=== PATIENT | female | born 1945 | race Caucasian/White ===

== ENCOUNTER 2019-06-06 09:53 | Inpatient (IN) | payer OTHER, MEDICARE ==
[2019-06-06] MEDS ORDERED: SODIUM CHLORIDE 0.9% 500 ML INFUS.BAG IV ONE (10:19)
[2019-06-06] MEDS ORDERED: morphine CARPU-JECT 4 MG/1 ML DISP.SYRIN IVPUSH ONE (10:19)
[2019-06-06 10:21] VITALS: BMI 15.2
--- NOTE | 2019-06-06 10:24 | PDOC ---
History of Present Illness - General Chief Complaint: Injury Stated Complaint: R/O RT HIP FX Time Seen by Provider: 06/06/19 10:00 History Source: Patient, EMS Exam Limitations: No Limitations - History of Present Illness Initial Comments: 06/06/19 10:19 HPI 73 YOF with h/o [place] disease on steroids daily, arthritis, prior jaw fracture and left hip fx presenting with mechanical trip and fall, c/o right hip pain, unable to ambulate. she was getting up from bed and her slippers got caught with the carpet, she fell and landed on right hip. no LOC or head injury. no other complaints. no prodromal sx. no ASA or AC use. PSH: hip repair Meds: fludrocortisone, cortisol Social: lives with family; no ETOH or drug or smoking PMD Dr Jimenez. Trauma ROS: Constitutional: no fevers or chills. HEENT: no headache, no dizziness. No visual or hearing changes. No dental pain. No neck pain CVS: no chest pain or palpitations, no syncope Resp: no shortness of breath Abdomen: no abdominal pain, no vomiting or nausea. Genitorurinary: no urinary retention or incontinence, no dysuria, urgency or frequency. no hematuria MUSCULOSKELETAL: +hip , +leg/joint pain Back: no back pain SKIN: no redness or skin changes, no discharge, no rash. No wounds. Hematologic: no easy bruising/bleeding. NEUROLOGIC: No weakness, numbness or tingling. Allergic/Immunologic: no allergies All other systems reviewed and negative, or as documented in HPI. Physical exam: General: GCS 15 - NAD, well appearing HEENT: NCAT, PERRL, EOMI. Airway intact. No battles sign or raccoon eyes. No e/ o ocular. Dentition intact. No e/o septal hematoma, nasal bridge stable. Neck: neck supple, no midline C spine tenderness or deformity, ROM intact. No anterior mass or crepitus, trachea midline. Resp: Lungs clear bilaterally Chest: no clavicle or chest wall tenderness or crepitus CVS: RRR, 2+ pulses throughout. Abdomen: Abdomen soft, nontender, nondistended. Back: Back nontender, no midline spinal tenderness along cervical/thoracic/ lumbar spine, FROM, no stepoffs. MSK: pelvis stable. RLE held in hip flexion, unable to straighten. +right anterior hip TTP, ROM limited 2/2 extreme pain, 5/5 plantar and dorsiflexion, wiggles toes, SILT in L1-S1 distribution. Neuro: Alert, oriented appropriately. CN II-XII grossly symmetric and intact. no focal neuro deficits. Sensation and strength intact throughout. Skin: intact, normal color and well perfused. No skin discoloration. 06/06/19 12:36 06/06/19 17:40 Past History - Past Medical History Allergies/Adverse Reactions: Allergies Allergy/AdvReac Type Severity Reaction Status Date / Time Penicillins Allergy Severe Difficulty Verified 06/06/19 10:04 Breathing meperidine HCl [From Demerol] AdvReac Intermediate Nausea Verified 06/06/19 10: 04 seasonal Allergy Intermediate Uncoded 06/06/19 10:04 Home Medications: Ambulatory Orders Cortisone Acetate [Cortisone -] 25 mg PO DAILY 06/06/19 Levothyroxine [Synthroid -] 50 mg PO DAILY 06/06/19 Meclizine HCl 25 mg PO TID 06/06/19 Anemia: No Asthma: No Cancer: No Cardiac Disorders: Yes (mvp) CVA: No COPD: No CHF: No Dementia: No Diabetes: No GI Disorders: Yes (h-pylori) Disorders: No HTN: No Hypercholesterolemia: No Liver Disease: No Seizures: No Thyroid Disease: No - Surgical History Abdominal Surgery: No Appendectomy: No Cardiac Surgery: No Cholecystectomy: No Lung Surgery: No Neurologic Surgery: No Orthopedic Surgery: Yes - Psycho Social/Smoking Cessation Hx Smoking History: Unknown if ever smoked Have you smoked in the past 12 months: No Hx Alcohol Use: No Drug/Substance Use Hx: No Substance Use Type: None Hx Substance Use Treatment: No *Physical Exam - Vital Signs Last Vital Signs Temp Pulse Resp BP Pulse Ox 97.2 F L 52 L 18 145/67 98 06/06/19 10:04 06/06/19 10:04 06/06/19 10:04 06/06/19 10:04 06/06/19 10:04 Procedures - Additional Procedures Additional Procedures: other Progress: 06/06/19 14:27 NERVE BLOCK Procedure A right femoral nerve block was performed. Patient was identified, using 2 criteria After explanation of the risks benefits and alternatives verbal [written] consent was obtained. Pre-procedure neurological exam findings: A neurologic exam was conducted including motor and sensory testing of the femoral/lateral cutaneous/obturator nerve. There were no deficits. Extremity compartments were soft Procedural details: The patient was maintained on continuous cardiac and pulmonary monitoring throughout the procedure. ``Time out was performed before needle insertion. The area of injection was prepped with chlorhexidine. Sterile technique was observed using: [+] sterile gloves, [+] sterile ultrasound probe cover, [+] sterile drape A 22 gauge quincke tip 90 mm in length, was used. Ultrasound guidance with real-time visualization of the needle tip was utilized throughout the procedure using an in-plane approach. Images were saved in PACS. Approximately 7 mL of 2 % (140mg) lidocaine without epinephrine and 18 ml 0.5% ( 90mg) bupivicaine ( was injected near the nerve structure - right femoral nerve. Local anesthetic was gradually injected in small aliquots of 3-5 mL following negative aspiration. There was no significant pain or paresthesias during the procedure. There were no signs of local anesthetic toxicity. There were no other complications or events on director of resource development Following the procedure, the blocked extremity was protected and [positioned] to prevent injury and was marked with provider initials and time of the block. Risks and complications of nerve block discussed including but not limited to failure of block, infection, bleeding, hematoma, pain, swelling, disability, compartment syndrome, vascular compromise, loss of limb, paralysis, paresthesias , anesthetic toxicity such as arrhythmia, metallic taste, seizures. 06/06/19 16:33 Heart Score/ECG Review #1 ECG reviewed & interpreted by me at: 10:10 General ECG Interpretation: Sinus Rhythm, Normal Intervals, No acute ischemic changes 06/06/19 10:28 EKG sinus bradycardia at 54 bpm, no interval abnormalities, narrow QRS, ST and T wave segments and morphology normal. Nonspecific T wave abnormalities, some limitations with artifact. ED Treatment Course - LABORATORY CBC & Chemistry Diagram: 06/06/19 10:21 06/06/19 10:21 - RADIOLOGY Radiology Studies Ordered: Category Date Time Status FEMUR-RIGHT [RAD] Stat Radiology 06/06/19 10:19 Ordered HIP & PELVIS-RIGHT [RAD] Stat Radiology 06/06/19 10:18 Ordered KNEE 3 POS-RIGHT [RAD] Stat Radiology 06/06/19 10:18 Ordered Medical Decision Making - Medical Decision Making 06/06/19 10:23 Vital Signs Temp Pulse Resp BP Pulse Ox 97.2 F L 52 L 18 145/67 98 06/06/19 10:04 06/06/19 10:04 06/06/19 10:04 06/06/19 10:04 06/06/19 10:04 Differential diagnosis includes contusion, extremity fracture, hip/pelvis fracture, femur fx, hip dislocation GCS 15, no head trauma or LOC, doubt syncope w/o prodromal sx. no indication for head CT given no neuro findings, no head trauma. Plan for x-ray imaging, basic labs, type and screen EKG, patient most likely has a hip fracture clinically given the extreme pain, will provide appropriate analgesia IV fluids and reassess Basic laboratory results are within normal limits, EKG is sinus bradycardia without abnormalities. Patient has been given IV morphine and Tylenol for pain control, patient did have brief episode of hypoxia placed on supplemental oxygen likely due to morphine side effects. Will not give any more opioids at this time. Patient is unable to tolerate x-ray imaging as she is unable to keep her leg straight so we will do CT of her pelvis and right lower extremity to evaluate for fracture, hematoma and associated injuries due to the mechanism of her fall 06/06/19 13:16 = rt hip/IT fracture noted, [facility]o cs with Dr Fernández/Dariusz FNB for analgesia, regional anesthesia, given risk of opioids and delirium/resp depression see procedure note quinn catheter, UA and culture preop assessment took her steroid today, to prevent adrenal crisis. admit to medicine, ortho eval, operative management tomorrow, NPO after midnight admitting to Dr Mcbride, Doris Fernández/Dariusz for surg tmw. 06/06/19 16:37 06/06/19 17:40 Discharge - Discharge Information Problems reviewed: Yes Clinical Impression/Diagnosis: Intertrochanteric fracture of right hip Condition: Fair - Admission Yes - Follow up/Referral - Patient Discharge Instructions - Post Discharge Activity
[2019-06-06] MEDS ORDERED: morphine SULFATE 4 MG/ML VIAL ONE (10:26)
[2019-06-06 10:57] LABS: BASO % 0.5 % (0-2.0); EOS % 1.6 % (0-4.5); HEMATOCRIT 36.9 % (32.4-45.2); HEMOGLOBIN 12.2 GM/dL (10.7-15.3); LYMPH % 18.8 % (8-40); MCH 31.9 pg (25.7-33.7); MCHC 33.2 g/dl (32.0-36.0); MEAN CELL VOLUME 96.1 fl (80-96); MEAN PLT VOLUME 8.2 fl (7.5-11.1); MONO % 7.3 % (3.8-10.2); NEUT % 71.8 % (42.8-82.8); PLATELET COUNT 171 K/MM3 (134-434); RBC 3.84 M/mm3 (3.60-5.2); RDW 12.8 % (11.6-15.6); WHITE BLOOD COUNT 8.8 K/mm3 (4.0-10.0)
[2019-06-06] MEDS ORDERED: ONDANSETRON 4 MG/2 ML VIAL ONE (11:03)
[2019-06-06] MEDS ORDERED: ONDANSETRON 4 MG/2 ML VIAL IVPUSH ONE (11:08)
[2019-06-06] MEDS ORDERED: ACETAMINOPHEN 1000 MG/100 ML VIAL (NON FORMULARY) IVPB ONE (11:15)
[2019-06-06] MEDS ORDERED: ACETAMINOPHEN INJECTION 100 ML IVPB ONE (11:17)
[2019-06-06 11:24] LABS: ALBUMIN 3.2 g/dl (3.4-5.0); BILIRUBIN,TOTAL 0.8 mg/dL (0.2-1); BLOOD UREA NITROGEN 14.9 mg/dL (7-18); CALCIUM 8.4 mg/dL (8.5-10.1); CREATININE 0.6 mg/dL (0.55-1.3); POTASSIUM 3.2 mmol/L (3.5-5.1)
[2019-06-06] MEDS ORDERED: POTASSIUM CHLORIDE TABS 20 MEQ TABLET.ER (FP) PO ONE (11:41)
[2019-06-06] MEDS ORDERED: BUPIVACAINE HCL/PF 0.5% (5 MG/ML) 30 ML VIAL IJ ONE ×2 (13:55→13:58)
[2019-06-06] MEDS ORDERED: LIDOCAINE HCL 2% (20ML MULTI-DOSE VIAL) ONE (14:00)
[2019-06-06] MEDS ORDERED: METOCLOPRAMIDE HCL INJECTION 10 MG/2 ML VIAL IVPUSH ONE (14:35)
[2019-06-06] MEDS ORDERED: ACETAMINOPHEN 1000 MG/100 ML VIAL (NON FORMULARY) IVPB PRN (15:18)
--- NOTE | 2019-06-06 15:31 | HP ---
CHIEF COMPLAINT: PCP: Dr. Val Mercedes HISTORY OF PRESENT ILLNESS: 73 y/o/f with PMHx of [place] and hypothyroidism here s/p mechanical fall at home this morning. Patient states she was getting out of bed when her slipper got caught on the bedsheet and she fell on her right hip. She denies LOC, head injury, palpitations, dizziness prior to the fall. She has not been able to walk since she fell and has pain with movement of her leg. Patient complains of nausea as well. She takes Cortisone and Fludrocortisone at home for her Addisons disease. Patient states she breaks her cortisone tablets into 1/4s and takes 1/4 of a tablet in the morning and another 1/4 eight hours later if needed. She states she also takes only half her Fludrocortisone tablet per day. Denies chest pain, abd pain, SOB, headache. Patient complaining of Nausea during interview. ER course was notable for: (1) Right intertrocanteric fracture of the right femur with impaction of fracture fragments noted on CT (2) Ortho consulted, will take patient to OR tomorrow (3) Right femoral nerve block done by ED for pain control (4) Patient was given 4mg of Morphine in ED for pain control which caused her to desaturate to the high 80s, saturation improved spontaneously without intervention Recent Travel: none PAST MEDICAL HISTORY: Addisons, Hypothyroidism PAST SURGICAL HISTORY: Left hip Social History: Smoking: denies Alcohol: denies Drugs: denies Allergies Penicillins Allergy (Severe, Verified 06/06/19 10:04) Difficulty Breathing throat closure meperidine HCl [From Demerol] Adverse Reaction (Intermediate, Verified 06/06/19 10:04) Nausea seasonal Allergy (Intermediate, Uncoded 06/06/19 10:04) HOME MEDICATIONS: Home Medications Medication Instructions Recorded Cortisone Acetate [Cortisone -] 25 mg PO DAILY 06/06/19 Levothyroxine [Synthroid -] 50 mg PO DAILY 06/06/19 Meclizine HCl 25 mg PO TID 06/06/19 REVIEW OF SYSTEMS As per HPI PHYSICAL EXAMINATION Vital Signs - 24 hr 06/06/19 06/06/19 06/06/19 10:04 11:25 11:27 Temperature 97.2 F L Pulse Rate 52 L Pulse Rate [ 56 L Right] Respiratory 18 16 Rate Blood Pressure 145/67 Blood Pressure 154/68 [Left Arm] O2 Sat by Pulse 98 84 L 99 Oximetry (%) GENERAL: Awake, alert, and fully oriented, in pain. thin HEAD: Normal with no signs of trauma. EYES: PERRL, EOMI EARS, NOSE, THROAT: Dry mucous membranes NECK: Normal range of motion, supple without lymphadenopathy, JVD, or masses. LUNGS: Breath sounds equal, clear to auscultation bilaterally. No wheezes, and no crackles. No accessory muscle use. HEART: Regular rate and rhythm, normal S1 and S2 without murmur, rub or gallop. ABDOMEN: Soft, nontender, not distended, normoactive bowel sounds MUSCULOSKELETAL: RLE held in flexed position, pain with minimal movement. No gross deformities noted EXTREMITIES: 2+ pulses, warm, well-perfused. No peripheral edema. NEUROLOGICAL: Cranial nerves II-XII intact. Normal speech PSYCHIATRIC: Cooperative. Good eye contact. Appropriate mood and affect. SKIN: Warm, dry, normal turgor, no rashes or lesions noted, normal capillary refill. Laboratory Results - last 24 hr 06/06/19 06/06/19 06/06/19 10:21 10:21 10:21 WBC 8.8 RBC 3.84 Hgb 12.2 Hct 36.9 MCV 96.1 H MCH 31.9 MCHC 33.2 RDW 12.8 Plt Count 171 MPV 8.2 Absolute Neuts (auto) 6.3 Neutrophils % 71.8 Lymphocytes % 18.8 D Monocytes % 7.3 Eosinophils % 1.6 Basophils % 0.5 Nucleated RBC % 0 Sodium 142 Potassium 3.2 L Chloride 110 H Carbon Dioxide 28 Anion Gap 5 L BUN 14.9 Creatinine 0.6 Est GFR (CKD-EPI)AfAm 103.34 Est GFR (CKD-EPI)NonAf 89.16 Random Glucose 86 Calcium 8.4 L Total Bilirubin 0.8 AST 27 ALT 24 Alkaline Phosphatase 48 Total Protein 6.0 L Albumin 3.2 L Blood Type A POSITIVE Antibody Screen Negative ASSESSMENT/PLAN: 73 y/o/f with PMHx of [place] and hypothyroidism here s/p mechanical fall at home this morning. Found to have R femur intertrocanteric fracture on imaging. Ortho consulted, to go to OR tomorrow. #R femur intertrocanteric fracture 2/2 mechanical fall - CT imaging confirmed right femur intertrocanteric fracture - Ortho consulted, will take patient to OR tomorrow for gamma nail procedure - Pre-Op labs ordered - NPO after midnight except for meds - Ofirmev for pain control - Patient given 4mg of Morphine in ED which caused her to desaturate to 80s. Can give Morphine for pain control if needed but would start with low dose and monitor O2 sat - Fall precautions #Addisons disease - Continue home dose of Cortisone - Continue home dose of Fludrocortisone. Patient has not picked up fludrocortisone since Jun of this year but swears she is taking it as described in HPI - Endocrine consulted - will need high dose steroids prior to surgery #Hypothyroidism - Continue Levothyroxine. Will switch to IV until s/p surgery when she can resume PO #Prophylaxis - Will hold chemical AC in anticipation of procedure #FEN - Regular diet - NPO at midnight except for meds - D5LR @75mls/hr #Disposition - admitted to med surg - to go to OR tomorrow for gamma nail procedure Visit type - Emergency Visit Emergency Visit: Yes ED Registration Date: 06/06/19 Care time: The patient presented to the Emergency Department on the above date and was hospitalized for further evaluation of their emergent condition. - New Patient This patient is new to me today: No - Critical Care Critical Care patient: No ATTENDING PHYSICIAN STATEMENT I saw and evaluated the patient. I reviewed the resident's note and discussed the case with the resident. I agree with the resident's findings and plan as documented. SUBJECTIVE: OBJECTIVE: ASSESSMENT AND PLAN:
--- NOTE | 2019-06-06 15:39 | PN ---
Teaching Attending Note Name of Resident: Angeles Tuttle ATTENDING PHYSICIAN STATEMENT I saw and evaluated the patient. I reviewed the resident's note and discussed the case with the resident. I agree with the resident's findings and plan as documented with exceptions below. SUBJECTIVE: 73 yof with PMhx of [place]'s disease on Cortisone/Fludrocortisone for 35 years , prior falls, left femoral neck fracture s/p open reduction/internal fixation 2011, admitted with mechanical fall, right hip pain, found with right intertrochanteric fracture. Patient confirms mechanical fall while trying to get out of bed. No dizziness, LOC, head trauma, chest pain, palpitations, dyspnea, or other symptoms around the episode. Currently s/p femoral block by ED, pain better. Orthopedic consulted, plan for OR tomorrow. OBJECTIVE: Vital Signs Period Temp Pulse Resp BP Sys/Henderson Pulse Ox Last 24 Hr 97.2 F 52-56 16-18 145-154/67-68 84-99 Intake & Output 06/03/19 06/04/19 06/05/19 06/06/19 23:59 23:59 23:59 23:59 Weight 97 lb GENERAL: Awake, alert, and fully oriented, in no acute distress,sleepy but appropriate/conversant. HEAD: Normal with no signs of trauma. EYES: Pupils equal, round and reactive to light, extraocular movements intact, sclera anicteric, conjunctiva clear. No lid lag. EARS, NOSE, THROAT: Ears normal, nares patent, oropharynx clear without exudates. Moist mucous membranes. NECK: Normal range of motion, soft, supple, no JVD LUNGS: decreased effort, no rales or wheezing, limited exam posteriorly HEART: Regular rate and rhythm, normal S1 and S2, no murmur or rub appreciated ABDOMEN: Soft, nontender, not distended, normoactive bowel sounds, no guarding, no rebound, no masses. No hepatomegaly or splenomegaly appreciated. MUSCULOSKELETAL: Normal range of motion at all joints. No bony deformities or tenderness. No CVA tenderness. UPPER EXTREMITIES: 2+ pulses, warm, well-perfused. No cyanosis. No clubbing. No peripheral edema. LOWER EXTREMITIES: RLE shortened, limited ROM, pos DP pulses, no pedal edema, LLE pos pulses, no edema NEUROLOGICAL: AAOx3, facial symmetry, speech normal, power 4/5 generalized except RLE limited by pain, no gross focal deficit PSYCHIATRIC: Cooperative. Good eye contact. Appropriate mood and affect. SKIN: Warm, dry, normal turgor, no rashes or lesions noted, normal capillary refill. Home Medications Medication Instructions Recorded Cortisone Acetate [Cortisone -] 25 mg PO DAILY 06/06/19 Levothyroxine [Synthroid -] 50 mg PO DAILY 06/06/19 Meclizine HCl 25 mg PO TID 06/06/19 Active Medications Acetaminophen (Ofirmev Injection -) 1,000 mg IVPB Q6H PRN PRN Reason: PAIN LEVEL 1-5 Dextrose/Lactated Ringer's (D5-Lr -) 1,000 mls @ 75 mls/hr IV [facility] Laboratory Results - last 24 hr 06/06/19 06/06/19 06/06/19 10:21 10:21 10:21 WBC 8.8 RBC 3.84 Hgb 12.2 Hct 36.9 MCV 96.1 H MCH 31.9 MCHC 33.2 RDW 12.8 Plt Count 171 MPV 8.2 Absolute Neuts (auto) 6.3 Neutrophils % 71.8 Lymphocytes % 18.8 D Monocytes % 7.3 Eosinophils % 1.6 Basophils % 0.5 Nucleated RBC % 0 Sodium 142 Potassium 3.2 L Chloride 110 H Carbon Dioxide 28 Anion Gap 5 L BUN 14.9 Creatinine 0.6 Est GFR (CKD-EPI)AfAm 103.34 Est GFR (CKD-EPI)NonAf 89.16 Random Glucose 86 Calcium 8.4 L Total Bilirubin 0.8 AST 27 ALT 24 Alkaline Phosphatase 48 Total Protein 6.0 L Albumin 3.2 L Blood Type A POSITIVE Antibody Screen Negative Laboratory Results - last 24 hr 06/06/19 06/06/19 06/06/19 10:21 10:21 10:21 WBC 8.8 RBC 3.84 Hgb 12.2 Hct 36.9 MCV 96.1 H MCH 31.9 MCHC 33.2 RDW 12.8 Plt Count 171 MPV 8.2 Absolute Neuts (auto) 6.3 Neutrophils % 71.8 Lymphocytes % 18.8 D Monocytes % 7.3 Eosinophils % 1.6 Basophils % 0.5 Nucleated RBC % 0 Sodium 142 Potassium 3.2 L Chloride 110 H Carbon Dioxide 28 Anion Gap 5 L BUN 14.9 Creatinine 0.6 Est GFR (CKD-EPI)AfAm 103.34 Est GFR (CKD-EPI)NonAf 89.16 Random Glucose 86 Calcium 8.4 L Total Bilirubin 0.8 AST 27 ALT 24 Alkaline Phosphatase 48 Total Protein 6.0 L Albumin 3.2 L Blood Type A POSITIVE Antibody Screen Negative CT pelvis results reviewed EKG sinus bradycardia 54, artifactual baseline but no acute ST-T changes noted ASSESSMENT AND PLAN: 73 yof with PMhx of [place]'s disease on Cortisone/Fludrocortisone for 35 years , prior falls, left femoral neck fracture s/p open reduction/internal fixation 2011 admitted with mechanical fall and right intertrochanteric hip fracture -Mechanical Fall -Right intertrochanteric hip fracture -[place]inche[place]'s disease -H/o falls -h/o left femoral neck fracture s/p ORIF 2011 Plan: Orthopedic consulted, plan for operative intervention in AM. s/p femoral nerve block in ED. Pain control with Tylenol IV. Caution with opioids given episode of drowsiness/ Vomiting/hypoxia in ED after receiving Morphine. Cortisone morning home dose. Additional stress dose with hydrocortisone 50-100 mg Pre-operatively and IV q8h for 24-48 hours. Endocrine input. Continue fludrocortisone/Levothyroxine. NPO after midnight, IV hydration RCRI 0, 0.4-0.5% risk of deborah-operative cardiac , non fatal [place] or non fatal cardiac arrest. No cardiac contraindications for urgent level of surgery, intermediate risk for intermediate level of surgery. DVTPPX post op per orthopedic recommendations Dispo anticipate SNF post surgery in 2-3 days if post-operative course uneventful. Plan discussed with patient and family at [facility] in detail, all questions answered. Total admit time 65 min.
--- NOTE | 2019-06-06 15:56 | CONSULT ---
Consult - text type - Consultation Consultation Note: FULL CONSULT DICTATED IMP:R IT HIP FX PLAN: R GAMMA NAIL TOMORROW
[2019-06-06] MEDS ORDERED: METOCLOPRAMIDE HCL INJECTION 10 MG/2 ML VIAL ONE (16:18)
[2019-06-06 17:05] LABS: PH,URINE 6.5 (5.0-8.0); URINE APPEARANCE CLEAR; URINE BILIRUBIN NEGATIVE (NEGATIVE); URINE COLOR YELLOW; URINE GLUCOSE (UA) NEGATIVE (NEGATIVE); URINE KETONE TRACE (NEGATIVE); URINE LEUK ESTERASE NEGATIVE (NEGATIVE); URINE NITRITE NEGATIVE (NEGATIVE); URINE PROTEIN NEGATIVE (NEGATIVE); URINE UROBILINOGEN 0.2 mg/dL (0.2-1.0)
--- NOTE | 2019-06-06 18:00 | CONSULT ---
Consult Consult Specialty:: Endocrinology Referred by:: Marry Reynoso Reason for Consultation:: Adrenal Insufficiency - History of Present Illness Chief Complaint: Rt hip pain History of Present Illness: This is a 73 y/o/f with PMHx of [place]'s disease and hypothyroidism who presented s/p mechanical fall at home this morning. Patient states she was getting out of bed when her slipper got caught on the bedsheet and she fell on her right hip. She denies LOC, head injury, palpitations, dizziness prior to the fall. She has not been able to walk since she fell and has pain with movement of her leg. Patient complains of nausea as well. She takes Cortisone and Fludrocortisone at home for her Addisons disease. Patient states she breaks her cortisone tablets into 1/4s and takes 1/4 of a tablet in the morning and another 1/4 eight hours later if needed. She states she also takes only half her Fludrocortisone tablet per day. Denies chest pain, abd pain, SOB, headache. Pt found to have Rt intertrocanteric fracture of the right femur with impaction of fracture fragments noted on CT. Pt seen by Ortho and is schduled for OR tomorrow. - History Source History Provided By: Patient, Medical Record - Past Medical History Endocrine: Yes: [place]'s Disease - Alcohol/Substance Use Hx Alcohol Use: No - Smoking History Smoking history: Unknown if ever smoked Have you smoked in the past 12 months: No Home Medications - Allergies Allergies/Adverse Reactions: Allergies Allergy/AdvReac Type Severity Reaction Status Date / Time Penicillins Allergy Severe Difficulty Verified 06/06/19 10:04 Breathing meperidine HCl [From Demerol] AdvReac Intermediate Nausea Verified 06/06/19 10: 04 seasonal Allergy Intermediate Uncoded 06/06/19 10:04 - Home Medications Home Medications: Ambulatory Orders Cortisone Acetate [Cortisone -] 25 mg PO DAILY 06/06/19 Levothyroxine [Synthroid -] 50 mg PO DAILY 06/06/19 Meclizine HCl 25 mg PO TID 06/06/19 Review of Systems - Review of Systems Constitutional: reports: Malaise Eyes: reports: No Symptoms HENT: reports: No Symptoms Neck: reports: No Symptoms Cardiovascular: reports: No Symptoms Respiratory: reports: No Symptoms Gastrointestinal: reports: No Symptoms Musculoskeletal: reports: Extremity Pain (Rt hip pain) Neurological: reports: No Symptoms Endocrine: reports: No Symptoms Physical Exam Vital Signs: Vital Signs Temperature 98.0 F 06/06/19 16:54 Pulse Rate 66 06/06/19 16:54 Respiratory Rate 18 06/06/19 16:54 Blood Pressure 118/50 L 06/06/19 16:54 O2 Sat by Pulse Oximetry (%) 96 06/06/19 16:54 Constitutional: Yes: No Distress, Calm Eyes: Yes: Conjunctiva Clear, EOM Intact HENT: Yes: Atraumatic, Normocephalic Neck: Yes: Supple, Trachea Midline Cardiovascular: Yes: Regular Rate and Rhythm Respiratory: Yes: Regular, CTA Bilaterally Gastrointestinal: Yes: Normal Bowel Sounds, Soft Edema: No Labs: CBC, BMP 06/06/19 10:21 06/06/19 10:21 Assessment/Plan AP: Fracture Rt Hip For OR tomorrow Adrenal Insufficiency Pt seems to be on very low dose hydrocortisone replacement of 7.5 to 15 mg per day. Will give cortisone 20mg in the morning tomorrow and Hydrocortisone 50mg IV just before surgery and 25mg IV Q8 hr postoperatively for 24 to 48 hrs Fludrocortisone 0.05mg Qd Hypothyroidiism Levothyroxine 50mcg Qd
[2019-06-06] MEDS: ACETAMINOPHEN 1000 MG/100 ML VIAL (NON FORMULARY) IVPB PRN (18:52)
[2019-06-06] MEDS: MECLIZINE HCL 25 MG TABLET (FP) PO SCH ×2 (21:58→21:59)
[2019-06-06] MEDS ORDERED: DEXTROSE 5%-LACTATED RINGERS 1,000 ML IV SCH (22:00)
[2019-06-07] MEDS ORDERED: FLUDROCORTISONE ACETATE 0.1 MG TABLET (FP) PO SCH (06:00)
[2019-06-07] MEDS: MECLIZINE HCL 25 MG TABLET (FP) PO SCH (06:08)
[2019-06-07] MEDS: ACETAMINOPHEN 1000 MG/100 ML VIAL (NON FORMULARY) IVPB PRN (06:10)
[2019-06-07] MEDS: HYDROCORTISONE 20 MG TABLET PO SCH ×2 (06:26→10:10)
[2019-06-07] MEDS ORDERED: LEVOTHYROXINE NA 50 MCG TABLET (FP) PO SCH (07:00)
[2019-06-07 08:27] LABS: HEMATOCRIT 29.4 % (32.4-45.2); HEMOGLOBIN 9.8 GM/dL (10.7-15.3); MCH 32.2 pg (25.7-33.7); MCHC 33.2 g/dl (32.0-36.0); MEAN PLT VOLUME 8.6 fl (7.5-11.1); PLATELET COUNT 119 K/MM3 (134-434); RBC 3.04 M/mm3 (3.60-5.2); RDW 12.4 % (11.6-15.6); WHITE BLOOD COUNT 6.9 K/mm3 (4.0-10.0)
[2019-06-07 08:47] LABS: INR 1.16 (0.83-1.09); PROTHROMBIN TIME (PATIENT) 13.7 SEC (9.7-13.0)
[2019-06-07 08:49] LABS: ACTIVATED PTT 33.7 SECONDS (25.2-36.5)
[2019-06-07 08:56] LABS: BLOOD UREA NITROGEN 7.7 mg/dL (7-18); CALCIUM 7.6 mg/dL (8.5-10.1); CREATININE 0.6 mg/dL (0.55-1.3)
--- NOTE | 2019-06-07 09:09 | PN ---
Progress Note (short form) - Note Progress Note: C/o Rt hip pain Reviewed home meds with at bedside Cortisone 25, Florinef 0.1mg and LT4 50 Vital Signs Period Temp Pulse Resp BP Sys/Henderson Pulse Ox Last 24 Hr 97.2 F-98.8 F 52-86 16-20 101-154/50-68 84-99 PE: AOx3 Neck: Supple HEENT: EOMI LungsL: CTA CVS: S1S2 Abd: Benign EXt: No edema CMP Sodium 138 mmol/L (136-145) 06/07/19 07:52 Potassium 3.2 mmol/L (3.5-5.1) L 06/06/19 10:21 Chloride 104 mmol/L (98-107) 06/07/19 07:52 Carbon Dioxide 29 mmol/L (21-32) 06/07/19 07:52 Anion Gap 6 MMOL/L (8-16) L 06/07/19 07:52 BUN 7.7 mg/dL (7-18) 06/07/19 07:52 Creatinine 0.6 mg/dL (0.55-1.3) 06/07/19 07:52 Est GFR (CKD-EPI)AfAm 103.34 06/07/19 07:52 Est GFR (CKD-EPI)NonAf 89.16 06/07/19 07:52 Random Glucose 220 mg/dL (74-106) H 06/07/19 07:52 Calcium 7.6 mg/dL (8.5-10.1) L 06/07/19 07:52 Total Bilirubin 0.8 mg/dL (0.2-1) 06/06/19 10:21 AST 27 U/L (15-37) 06/06/19 10:21 ALT 24 U/L (13-61) 06/06/19 10:21 Alkaline Phosphatase 48 U/L (45-117) 06/06/19 10:21 Total Protein 6.0 g/dl (6.4-8.2) L 06/06/19 10:21 Albumin 3.2 g/dl (3.4-5.0) L 06/06/19 10:21 Current Medications Generic Name Dose Route Start Last Admin Trade Name Freq PRN Reason Stop Dose Admin Acetaminophen 1,000 mg 06/06/19 18:20 06/07/19 06:10 Ofirmev Injection - IVPB 1,000 mg Q6H PRN Administration PAIN Fludrocortisone Acetate 0.05 mg 06/07/19 06:00 06/07/19 06:10 Florinef - PO 0.05 mg DAILY@0600 MARIA Administration Hydrocortisone 20 mg 06/07/19 06:00 06/07/19 06:26 Cortef - PO 20 mg DAILY MARIA Administration Hydrocortisone Sodium Succinate 50 mg 06/07/19 10:00 Solu-Cortef - IVPB 06/07/19 10:01 ONCE ONE Hydrocortisone Sodium Succinate 25 mg 06/07/19 18:00 Solu-Cortef - IVPB Q8H MARIA Dextrose/Lactated Ringer's 1,000 mls @ 75 mls/hr 06/06/19 22:00 06/06/19 21: 59 D5-Lr - IV 75 mls/hr ASDIR MARIA Administration Levothyroxine Sodium 50 mcg 06/07/19 07:00 06/07/19 06:08 Synthroid - PO 50 mcg DAILY@0700 MARIA Administration Meclizine HCl 25 mg 06/06/19 22:00 06/07/19 06:08 Antivert - PO Not Given TID MARIA AP: Fracture Rt Hip For OR tomorrow Adrenal Insufficiency Pt seems to be on very low dose hydrocortisone replacement of 7.5 to 15 mg per day. Will give cortisone 20mg in the morning tomorrow and Hydrocortisone 50mg IV just before surgery and 25mg IV Q8 hr postoperatively for 24 to 48 hrs Fludrocortisone 0.05mg Qd Electrolyte replacement as necessary Will hold Florinef tomorrow b/o hypokalemia Hypothyroidiism Levothyroxine 50mcg Qd
[2019-06-07 09:16] LABS: POTASSIUM 2.9 mmol/L (3.5-5.1)
[2019-06-07] MEDS ORDERED: POTASSIUM CHLORIDE TABS 20 MEQ TABLET.ER (FP) PO ONE (09:37)
[2019-06-07] MEDS ORDERED: PT OWN MED DRAWER 7, Y5N ONE (09:49)
[2019-06-07] MEDS ORDERED: HYDROCORTISONE SOD SUCCINATE 100 MG/2 ML VIAL IVPB ONE (10:00)
[2019-06-07] MEDS: KCL 10 MEQ IVPB 10 MEQ/100 ML INFUS.BAG IVPB SCH ×3 (10:08→15:03)
--- NOTE | 2019-06-07 10:16 | EKG ---
Test Reason : Blood Pressure : / mmHG Vent. Rate : 054 BPM Atrial Rate : 054 BPM P-R Int : 150 ms QRS Dur : 076 ms QT Int : 488 ms P-R-T Axes : 057 056 031 degrees QTc Int : 462 ms POOR DATA QUALITY, INTERPRETATION MAY BE ADVERSELY AFFECTED SINUS BRADYCARDIA POSSIBLE LEFT ATRIAL ENLARGEMENT BORDERLINE ECG WHEN COMPARED WITH ECG OF 19-AUG-2010 20:35, NO SIGNIFICANT CHANGE WAS FOUND Confirmed by Daniel Macias MD ([id number]) on 06/07/2019 10:16:30 AM Referred By: Confirmed By:Daniel Macias MD
[2019-06-07] MEDS ORDERED: ONDANSETRON 4 MG/2 ML VIAL IVPUSH PRN ×4 (11:12→13:21)
[2019-06-07] MEDS ORDERED: ceFAZolin SODIUM 1 GM VIAL IVPB ONE (12:13)
[2019-06-07] MEDS ORDERED: LACTATED RINGERS SOLUTION 1,000 ML IV SCH ×3 (12:15→13:21)
[2019-06-07] MEDS ORDERED: PROPOFOL 20 ML ONE ×3 (12:18→12:56)
[2019-06-07] MEDS ORDERED: MIDAZOLAM HCL 2 MG/2 ML SINGLE DOSE VIAL ONE (12:18)
[2019-06-07] MEDS ORDERED: EPHEDRINE SULFATE/0.9% NACL/PF 50 MG/10 ML SYRINGE NR ONE (12:40)
--- NOTE | 2019-06-07 13:13 | OP ---
Operative Note - Note: Operative Date: 06/07/19 Pre-Operative Diagnosis: R IT HIP FX Operation: R GAMMA NAIL Post-Operative Diagnosis: Same as Pre-op Anesthesia: Spinal Estimated Blood Loss (mls): 50 Operative Report Dictated: Yes
[2019-06-07] MEDS ORDERED: MECLIZINE HCL 25 MG TABLET (FP) PO SCH (14:00)
[2019-06-07] MEDS: LACTATED RINGERS SOLUTION 1,000 ML IV SCH (15:03)
--- NOTE | 2019-06-07 17:49 | PN ---
Teaching Attending Note Name of Resident: Angeles Tuttle ATTENDING PHYSICIAN STATEMENT I saw and evaluated the patient. I reviewed the resident's note and discussed the case with the resident. I agree with the resident's findings and plan as documented with exceptions below. SUBJECTIVE: Patient seen and examined around 10:30 AM before surgery. reports nausea, awaiting surgery. Pain well controlled OBJECTIVE: Vital Signs Period Temp Pulse Resp BP Sys/Henderson Pulse Ox Last 24 Hr 97.8 F-98.8 F 62-86 16-20 90-144/57-80 95-100 Intake & Output 06/04/19 06/05/19 06/06/19 06/07/19 23:59 23:59 23:59 23:59 Intake Total 100 1700 Output Total 600 3825 Balance -500 -2125 Weight 97 lb General: sitting in bed, no acute distress Chest: no rales or wheezing, Abdomen: soft, NT Extremities: no pedal edema or erythema, Right hip flexed Home Medications Medication Instructions Recorded Cortisone Acetate [Cortisone -] 25 mg PO DAILY 06/06/19 Levothyroxine [Synthroid -] 50 mg PO DAILY 06/06/19 Meclizine HCl 25 mg PO TID 06/06/19 Active Medications Acetaminophen (Ofirmev Injection -) 1,000 mg IVPB Q6H PRN PRN Reason: PAIN Enoxaparin Sodium (Lovenox -) 40 mg SQ DAILY [facility] Fentanyl (Sublimaze Injection -) 25 mcg IVPUSH [id number] PRN PRN Reason: PAIN-PACU ORDER X 4 DOSES ONLY Fludrocortisone Acetate (Florinef -) 0.05 mg PO DAILY@0600 [facility] Hydrocortisone (Cortef -) 20 mg PO DAILY [facility] Hydrocortisone Sodium Succinate (Solu-Cortef -) 25 mg IVPB Q8H MARIA Cefazolin Sodium (Ancef 1 Gm Premixed Ivpb -) 1 gm in 50 mls @ 100 mls/hr IVPB Q8H-IV MARIA Stop: 06/08/19 02:29 Lactated Ringer's (Lactated Ringers Solution) 1,000 mls @ 75 mls/hr IV ASDIR MARIA Last Admin: 06/07/19 15:03 Dose: 75 mls/hr Levothyroxine Sodium (Synthroid -) 50 mcg PO DAILY@0700 [facility] Ondansetron HCl (Zofran Injection) 4 mg IVPUSH Q6H PRN PRN Reason: NAUSEA Ondansetron HCl (Zofran Injection) 4 mg IVPUSH Q6H PRN PRN Reason: NAUSEA AND/OR VOMITING Laboratory Results - last 24 hr 06/07/19 06/07/19 06/07/19 07:52 07:52 07:52 WBC 6.9 RBC 3.04 L Hgb 9.8 L Hct 29.4 L D MCV 97.0 H MCH 32.2 MCHC 33.2 RDW 12.4 Plt Count 119 L D MPV 8.6 PT with INR 13.70 H INR 1.16 H PTT (Actin FS) 33.7 Sodium 138 Potassium 2.9 L* Chloride 104 Carbon Dioxide 29 Anion Gap 6 L BUN 7.7 Creatinine 0.6 Est GFR (CKD-EPI)AfAm 103.34 Est GFR (CKD-EPI)NonAf 89.16 Random Glucose 220 H Calcium 7.6 L Blood Type Antibody Screen 06/07/19 07:52 WBC RBC Hgb Hct MCV MCH MCHC RDW Plt Count MPV PT with INR INR PTT (Actin FS) Sodium Potassium Chloride Carbon Dioxide Anion Gap BUN Creatinine Est GFR (CKD-EPI)AfAm Est GFR (CKD-EPI)NonAf Random Glucose Calcium Blood Type A POSITIVE Antibody Screen Negative ASSESSMENT AND PLAN: 73 yof with PMhx of [place]'s disease on Cortisone/Fludrocortisone for 35 years , prior falls, left femoral neck fracture s/p open reduction/internal fixation 2011 admitted with mechanical fall and right intertrochanteric hip fracture -Mechanical Fall -Right intertrochanteric hip fracture s/p Gamma nail 06/07 -Lul's disease -H/o falls -h/o left femoral neck fracture s/p ORIF 2011 Plan: S/p gamma nail. Pain control with Tylenol IV. Caution with opioids given episode of drowsiness/ Vomiting/hypoxia in ED after receiving Morphine. On lovenox per orthopedic. PO as tolerated. Dc quinn and PT eval in 24 hours. Bowel regimen. Endocrine input noted. s/p hydrocortisone 50 mg IV pre-surgery. Now 25 mg IVq8h for 24 hours. Continue home dose cortisone. Continue fludrocortisone/Levothyroxine. DVTPPX lovenox per orthopedic Incentive spirometry Dispo anticipate to [facility] in 48 hours if doing well and disposition arranged.
[2019-06-07] MEDS: CEFAZOLIN 1 GM/D5W 1 GM/50 ML BAG IVPB SCH (17:51)
[2019-06-07] MEDS ORDERED: HYDROCORTISONE SOD SUCCINATE 100 MG/2 ML VIAL IVPB SCH (18:00)
[2019-06-07] MEDS ORDERED: CEFAZOLIN 1 GM/D5W 1 GM/50 ML BAG IVPB SCH (18:00)
--- NOTE | 2019-06-07 18:04 | PN ---
Physical Exam: SUBJECTIVE: Patient seen and examined. Complains that she still has some pain but it is tolerable unless she has to move. Patient is hesitant to try morphine again for pain as it made her nauseous yesterday. Offered patient oxycodone but she states that makes her nausea even worse. Patient to go to OR today for gamma nail procedure. OBJECTIVE: Vital Signs Period Temp Pulse Resp BP Sys/Henderson Pulse Ox Last 24 Hr 97.8 F-98.8 F 62-86 16-20 90-133/57-80 95-100 GENERAL: Awake, alert, and fully oriented, thin. HEAD: Normal with no signs of trauma. EYES: PERRL, EOMI EARS, NOSE, THROAT: Dry mucous membranes NECK: Normal range of motion, supple without lymphadenopathy, JVD, or masses. LUNGS: Breath sounds equal, clear to auscultation bilaterally. No wheezes, and no crackles. No accessory muscle use. HEART: Regular rate and rhythm, normal S1 and S2 without murmur, rub or gallop. ABDOMEN: Soft, nontender, not distended, normoactive bowel sounds MUSCULOSKELETAL: RLE held in flexed position, pain with minimal movement. ROM of RLE limited due to pain EXTREMITIES: 2+ pulses, warm, well-perfused. No peripheral edema. NEUROLOGICAL: Normal speech. AAOx3 PSYCHIATRIC: Appropriate mood and affect. SKIN: Warm, dry, normal turgor, no rashes or lesions noted, normal capillary refill. Laboratory Results - last 24 hr 06/07/19 06/07/19 06/07/19 07:52 07:52 07:52 WBC 6.9 RBC 3.04 L Hgb 9.8 L Hct 29.4 L D MCV 97.0 H MCH 32.2 MCHC 33.2 RDW 12.4 Plt Count 119 L D MPV 8.6 PT with INR 13.70 H INR 1.16 H PTT (Actin FS) 33.7 Sodium 138 Potassium 2.9 L* Chloride 104 Carbon Dioxide 29 Anion Gap 6 L BUN 7.7 Creatinine 0.6 Est GFR (CKD-EPI)AfAm 103.34 Est GFR (CKD-EPI)NonAf 89.16 Random Glucose 220 H Calcium 7.6 L Blood Type Antibody Screen 06/07/19 07:52 WBC RBC Hgb Hct MCV MCH MCHC RDW Plt Count MPV PT with INR INR PTT (Actin FS) Sodium Potassium Chloride Carbon Dioxide Anion Gap BUN Creatinine Est GFR (CKD-EPI)AfAm Est GFR (CKD-EPI)NonAf Random Glucose Calcium Blood Type A POSITIVE Antibody Screen Negative Active Medications Generic Name Dose Route Start Last Admin Trade Name Freq PRN Reason Stop Dose Admin Acetaminophen 1,000 mg 06/07/19 13:21 Ofirmev Injection - IVPB Q6H PRN PAIN Enoxaparin Sodium 40 mg 06/08/19 10:00 Lovenox - SQ DAILY MARIA Fentanyl 25 mcg 06/07/19 13:21 Sublimaze Injection - IVPUSH [id number] PRN PAIN-PACU ORDER X 4 DOSES ONLY Fludrocortisone Acetate 0.05 mg 06/08/19 06:00 Florinef - PO DAILY@0600 [facility]IA Hydrocortisone 20 mg 06/08/19 10:00 Cortef - PO DAILY [facility] Hydrocortisone Sodium Succinate 25 mg 06/07/19 18:00 Solu-Cortef - IVPB Q8H MARIA Cefazolin Sodium 1 gm in 50 mls @ 100 mls/hr 06/07/19 18:00 06/07/19 17:51 Ancef 1 Gm Premixed Ivpb - IVPB 06/08/19 02:29 100 mls/hr Q8H-IV MARIA Administration Lactated Ringer's 1,000 mls @ 75 mls/hr 06/07/19 13:21 06/07/19 15:03 Lactated Ringers Solution IV 75 mls/hr ASDIR MARIA Administration Levothyroxine Sodium 50 mcg 06/08/19 07:00 Synthroid - PO DAILY@0700 [facility]IA Ondansetron HCl 4 mg 06/07/19 13:21 Zofran Injection IVPUSH Q6H PRN NAUSEA Ondansetron HCl 4 mg 06/07/19 13:21 Zofran Injection IVPUSH Q6H PRN NAUSEA AND/OR VOMITING ASSESSMENT/PLAN: 73 y/o/f with PMHx of [place] and hypothyroidism here s/p mechanical fall at home this morning. Found to have R femur intertrocanteric fracture on imaging. Ortho consulted, to go to OR today. #R femur intertrocanteric fracture 2/2 mechanical fall - CT imaging confirmed right femur intertrocanteric fracture - Ortho consulted, will take patient to OR today for gamma nail procedure - Ofirmev for pain control - Patient given 4mg of Morphine in ED which caused her to desaturate to 80s. Can give Morphine for pain control if needed but would start with low dose and monitor O2 sat. Patient reports Morphine and Oxycodone make her nauseous. Would give small doses if needed and have Zofran available. - Fall precautions - Cefazolin x2 started post-op #Addisons disease - Endocrine consulted - 50mg Hydrocortisone given prior to surgery. Continue with 25mg IV Q8 post- op for 24-48 hours - hold Florinef tomorrow due to hypokalemia #Hypothyroidism - Continue Levothyroxine home dose #Prophylaxis - Lovenox starting 06/08 #FEN - Regular diet - LR @75mls/hr - Hypokalemia, repleted. Will hold florinef tomorrow #Disposition - POD#0 s/p gamma nail procedure. Will likely need SNF placement on D/C Visit type - Emergency Visit Emergency Visit: Yes ED Registration Date: 06/06/19 Care time: The patient presented to the Emergency Department on the above date and was hospitalized for further evaluation of their emergent condition. - New Patient This patient is new to me today: No - Critical Care Critical Care patient: No ATTENDING PHYSICIAN STATEMENT I saw and evaluated the patient. I reviewed the resident's note and discussed the case with the resident. I agree with the resident's findings and plan as documented. SUBJECTIVE: OBJECTIVE: ASSESSMENT AND PLAN:
[2019-06-07] MEDS: ACETAMINOPHEN 325 MG TABLET (FP) PO PRN ×2 (19:11→23:14)
[2019-06-08] MEDS: HYDROCORTISONE SOD SUCCINATE 100 MG/2 ML VIAL IVPB SCH ×3 (02:22→17:37)
[2019-06-08] MEDS: LACTATED RINGERS SOLUTION 1,000 ML IV SCH (02:22)
[2019-06-08] MEDS: CEFAZOLIN 1 GM/D5W 1 GM/50 ML BAG IVPB SCH (02:23)
[2019-06-08] MEDS: FLUDROCORTISONE ACETATE 0.1 MG TABLET (FP) PO SCH (06:46)
[2019-06-08] MEDS: LEVOTHYROXINE NA 50 MCG TABLET (FP) PO SCH (06:46)
[2019-06-08 08:09] LABS: HEMATOCRIT 25.1 % (32.4-45.2); HEMOGLOBIN 8.5 GM/dL (10.7-15.3); MCH 32.5 pg (25.7-33.7); MCHC 33.9 g/dl (32.0-36.0); MEAN CELL VOLUME 95.7 fl (80-96); MEAN PLT VOLUME 8.6 fl (7.5-11.1); PLATELET COUNT 115 K/MM3 (134-434); RBC 2.62 M/mm3 (3.60-5.2); RDW 12.4 % (11.6-15.6); WHITE BLOOD COUNT 10.7 K/mm3 (4.0-10.0)
[2019-06-08 08:18] LABS: BLOOD UREA NITROGEN 5.4 mg/dL (7-18); CALCIUM 8.6 mg/dL (8.5-10.1); CREATININE 0.6 mg/dL (0.55-1.3); POTASSIUM 3.4 mmol/L (3.5-5.1)
[2019-06-08] MEDS ORDERED: POTASSIUM CHLORIDE TABS 20 MEQ TABLET.ER (FP) PO ONE (09:10)
[2019-06-08] MEDS: ENOXAPARIN NA (PORCINE) 40 MG/0.4 ML DISP.SYRIN SQ SCH (09:20)
[2019-06-08] MEDS: ACETAMINOPHEN 1000 MG/100 ML VIAL (NON FORMULARY) IVPB PRN ×2 (09:21→21:32)
[2019-06-08] MEDS: HYDROCORTISONE 20 MG TABLET PO SCH (09:29)
[2019-06-08] MEDS ORDERED: ENOXAPARIN NA (PORCINE) 40 MG/0.4 ML DISP.SYRIN SQ SCH (10:00)
--- NOTE | 2019-06-08 10:27 | PN ---
Progress Note (short form) - Note Progress Note: AVSS CONFORTable calf soft and nt nvi IMP: DOING WELL PLAN: PT, WBAT, DC PLANNING
--- NOTE | 2019-06-08 11:02 | PN ---
Teaching Attending Note Name of Resident: Angeles Tuttle ATTENDING PHYSICIAN STATEMENT I saw and evaluated the patient. I reviewed the resident's note and discussed the case with the resident. I agree with the resident's findings and plan as documented with exceptions below. SUBJECTIVE: Patient seen and examined. pain well controlled. no complaints. OBJECTIVE: Vital Signs Period Temp Pulse Resp BP Sys/Henderson Pulse Ox Last 24 Hr 97.8 F-98.2 F 62-75 16-20 90-137/60-80 95-100 Intake & Output 06/05/19 06/06/19 06/07/19 06/08/19 23:59 23:59 23:59 23:59 Intake Total 100 3200 Output Total 600 5025 Balance -500 -1825 Weight 97 lb General: sitting in bed, no acute distress Chest: CTAB, no rales or wheezing Abdomen:Soft, NT Extremities: right hip dressing clean, no edema Home Medications Medication Instructions Recorded Cortisone Acetate [Cortisone -] 25 mg PO DAILY 06/06/19 Levothyroxine [Synthroid -] 50 mg PO DAILY 06/06/19 Meclizine HCl 25 mg PO TID 06/06/19 Active Medications Acetaminophen (Ofirmev Injection -) 1,000 mg IVPB Q6H PRN PRN Reason: PAIN Stop: 06/09/19 13:20 Last Admin: 06/08/19 09:21 Dose: 1,000 mg Acetaminophen (Tylenol -) 650 mg PO Q4H PRN PRN Reason: PAIN 4-6 Last Admin: 06/07/19 23:14 Dose: 650 mg Enoxaparin Sodium (Lovenox -) 40 mg SQ DAILY [facility] Last Admin: 06/08/19 09:20 Dose: 40 mg Fentanyl (Sublimaze Injection -) 25 mcg IVPUSH [id number] PRN PRN Reason: PAIN-PACU ORDER X 4 DOSES ONLY Fludrocortisone Acetate (Florinef -) 0.05 mg PO DAILY@0600 [facility] Last Admin: 06/08/19 06:46 Dose: 0.05 mg Hydrocortisone (Cortef -) 20 mg PO DAILY [facility] Last Admin: 06/08/19 09:29 Dose: 20 mg Hydrocortisone Sodium Succinate (Solu-Cortef -) 25 mg IVPB Q8H-IV [facility] Last Admin: 06/08/19 09:31 Dose: 25 mg Levothyroxine Sodium (Synthroid -) 50 mcg PO DAILY@0700 [facility] Last Admin: 06/08/19 06:46 Dose: 50 mcg Ondansetron HCl (Zofran Injection) 4 mg IVPUSH Q6H PRN PRN Reason: NAUSEA Ondansetron HCl (Zofran Injection) 4 mg IVPUSH Q6H PRN PRN Reason: NAUSEA AND/OR VOMITING Laboratory Results - last 24 hr 06/08/19 06/08/19 07:10 07:10 WBC 10.7 H RBC 2.62 L Hgb 8.5 L Hct 25.1 L MCV 95.7 MCH 32.5 MCHC 33.9 RDW 12.4 Plt Count 115 L MPV 8.6 Sodium 142 Potassium 3.4 L Chloride 106 Carbon Dioxide 30 Anion Gap 5 L BUN 5.4 L Creatinine 0.6 Est GFR (CKD-EPI)AfAm 103.34 Est GFR (CKD-EPI)NonAf 89.16 Random Glucose 115 H Calcium 8.6 Microbiology 06/06/19 16:33 Urine - Urine - Catheterized Urine Culture - Final NO GROWTH OBTAINED ASSESSMENT AND PLAN: 73 yof with PMhx of Lul's disease on Cortisone/Fludrocortisone for 35 years , prior falls, left femoral neck fracture s/p open reduction/internal fixation 2011 admitted with mechanical fall and right intertrochanteric hip fracture -Mechanical Fall -Right intertrochanteric hip fracture s/p Gamma nail 06/07 -Anemia, suspect from acute surgical loss+/- hemodilution -Ewell's disease -H/o falls -h/o left femoral neck fracture s/p ORIF 2011 Plan: Doing well. Pain control with Tylenol IV. Caution with opioids given episode of drowsiness/ Vomiting/hypoxia in ED after receiving Morphine. On lovenox per orthopedic. Monitor CBC, transfuse prn PO as tolerated. Dc quinn and PT eval Bowel regimen. Endocrine input noted. Home dose po cortisone in AM. Stress dose hydrcortisone 25 mg q8h x 24 hours Continue fludrocortisone/Levothyroxine. DVTPPX lovenox per orthopedic Incentive spirometry Dispo anticipate to [facility] in 24 hours if doing well and disposition arranged.
--- NOTE | 2019-06-08 11:20 | PN ---
Physical Exam: SUBJECTIVE: Patient seen and examined. POD#1 from gamma nail procedure. Patient states pain is tolerable and she has a mild ache in her right hip. No acute events overnight. Encouraged patient to use incentive spirometer. OBJECTIVE: Vital Signs Period Temp Pulse Resp BP Sys/Henderson Pulse Ox Last 24 Hr 97.8 F-98.2 F 62-75 16-20 90-137/60-80 95-100 GENERAL: Awake, alert, and fully oriented, thin. HEAD: Normal with no signs of trauma. EYES: PERRL, EOMI EARS, NOSE, THROAT: Moist mucous membranes NECK: trachea midline, supple, FROM LUNGS: Breath sounds equal, clear to auscultation bilaterally. No wheezes, and no crackles. No accessory muscle use. HEART: Regular rate and rhythm, normal S1 and S2 without murmur, rub or gallop. ABDOMEN: Soft, nontender, not distended, normoactive bowel sounds MUSCULOSKELETAL: ROM of right hip limited due to pain, patient no longer holding hip in flexed position EXTREMITIES: 2+ pulses, warm, well-perfused. No peripheral edema. NEUROLOGICAL: Normal speech. AAOx3 PSYCHIATRIC: Appropriate mood and affect. SKIN: Warm, dry, normal turgor, no rashes or lesions noted, normal capillary refill. Right hip surgical site covered with dressing without evidence of hematoma, swelling, or erythema. Laboratory Results - last 24 hr 06/08/19 06/08/19 07:10 07:10 WBC 10.7 H RBC 2.62 L Hgb 8.5 L Hct 25.1 L MCV 95.7 MCH 32.5 MCHC 33.9 RDW 12.4 Plt Count 115 L MPV 8.6 Sodium 142 Potassium 3.4 L Chloride 106 Carbon Dioxide 30 Anion Gap 5 L BUN 5.4 L Creatinine 0.6 Est GFR (CKD-EPI)AfAm 103.34 Est GFR (CKD-EPI)NonAf 89.16 Random Glucose 115 H Calcium 8.6 Active Medications Generic Name Dose Route Start Last Admin Trade Name Freq PRN Reason Stop Dose Admin Acetaminophen 1,000 mg 06/07/19 13:21 06/08/19 09:21 Ofirmev Injection - IVPB 06/09/19 13:20 1,000 mg Q6H PRN Administration PAIN Acetaminophen 650 mg 06/07/19 19:00 06/07/19 23:14 Tylenol - PO 650 mg Q4H PRN Administration PAIN 4-6 Enoxaparin Sodium 40 mg 06/08/19 10:00 06/08/19 09:20 Lovenox - SQ 40 mg DAILY [facility]IA Administration Fentanyl 25 mcg 06/07/19 13:21 Sublimaze Injection - IVPUSH [id number] PRN PAIN-PACU ORDER X 4 DOSES ONLY Fludrocortisone Acetate 0.05 mg 06/08/19 06:00 06/08/19 06:46 Florinef - PO 0.05 mg DAILY@0600 [facility] Administration Hydrocortisone 20 mg 06/08/19 10:00 06/08/19 09:29 Cortef - PO 20 mg DAILY [facility]IA Administration Hydrocortisone Sodium Succinate 25 mg 06/08/19 02:15 06/08/19 09:31 Solu-Cortef - IVPB 25 mg Q8H-IV [facility] Administration Levothyroxine Sodium 50 mcg 06/08/19 07:00 06/08/19 06:46 Synthroid - PO 50 mcg DAILY@0700 [facility]IA Administration Ondansetron HCl 4 mg 06/07/19 13:21 Zofran Injection IVPUSH Q6H PRN NAUSEA Ondansetron HCl 4 mg 06/07/19 13:21 Zofran Injection IVPUSH Q6H PRN NAUSEA AND/OR VOMITING ASSESSMENT/PLAN: 73 y/o/f with PMHx of [place] and hypothyroidism here s/p mechanical fall at home this morning. Found to have R femur intertrocanteric fracture on imaging. Ortho consulted. POD#1 from gamma nail procedure. #R femur intertrocanteric fracture 2/2 mechanical fall - CT imaging confirmed right femur intertrocanteric fracture - Ortho consulted, POD#1 from gamma nail procedure - [facility] for pain control - Patient given 4mg of Morphine in ED which caused her to desaturate to 80s. Can give Morphine for pain control if needed but would start with low dose and monitor O2 sat. Patient reports Morphine and Oxycodone make her nauseous. Would give small doses if needed and have Zofran available. - Fall precautions - Cefazolin x2 given post op - Physical therapy recommending SNF placement on D/C #Addisons disease - Endocrine consulted - 50mg Hydrocortisone given prior to surgery. Continue with 25mg IV Q8 post- op for 24-48 hours - Florinef as per endocrine #Hypothyroidism - Continue Levothyroxine home dose #Prophylaxis - Lovenox #FEN - Regular diet - Hypokalemia, repleted #Disposition - POD#1 s/p gamma nail procedure. Will likely need [facility] placement on D/C Visit type - Emergency Visit Emergency Visit: Yes ED Registration Date: 06/06/19 Care time: The patient presented to the Emergency Department on the above date and was hospitalized for further evaluation of their emergent condition. - New Patient This patient is new to me today: No - Critical Care Critical Care patient: No ATTENDING PHYSICIAN STATEMENT I saw and evaluated the patient. I reviewed the resident's note and discussed the case with the resident. I agree with the resident's findings and plan as documented. SUBJECTIVE: OBJECTIVE: ASSESSMENT AND PLAN:
[2019-06-08 15:59] LABS: BASO % 0.1 % (0-2.0); EOS % 0.1 % (0-4.5); HEMATOCRIT 25.3 % (32.4-45.2); HEMOGLOBIN 8.4 GM/dL (10.7-15.3); LYMPH % 7.2 % (8-40); MCHC 33.2 g/dl (32.0-36.0); MEAN CELL VOLUME 96.5 fl (80-96); MEAN PLT VOLUME 9.5 fl (7.5-11.1); MONO % 5.8 % (3.8-10.2); NEUT % 86.8 % (42.8-82.8); PLATELET COUNT 122 K/MM3 (134-434); RBC 2.62 M/mm3 (3.60-5.2); RDW 12.4 % (11.6-15.6); WHITE BLOOD COUNT 12.3 K/mm3 (4.0-10.0)
[2019-06-09] MEDS: HYDROCORTISONE SOD SUCCINATE 100 MG/2 ML VIAL IVPB SCH ×2 (02:04→08:59)
[2019-06-09] MEDS: ACETAMINOPHEN 325 MG TABLET (FP) PO PRN (05:47)
[2019-06-09] MEDS: FLUDROCORTISONE ACETATE 0.1 MG TABLET (FP) PO SCH (05:48)
[2019-06-09] MEDS: LEVOTHYROXINE NA 50 MCG TABLET (FP) PO SCH (06:14)
[2019-06-09 08:37] LABS: HEMATOCRIT 25.1 % (32.4-45.2); HEMOGLOBIN 8.5 GM/dL (10.7-15.3); MCH 32.5 pg (25.7-33.7); MCHC 33.8 g/dl (32.0-36.0); MEAN CELL VOLUME 96.1 fl (80-96); MEAN PLT VOLUME 9.1 fl (7.5-11.1); PLATELET COUNT 140 K/MM3 (134-434); RBC 2.61 M/mm3 (3.60-5.2); RDW 12.7 % (11.6-15.6); WHITE BLOOD COUNT 12.6 K/mm3 (4.0-10.0)
[2019-06-09] MEDS: ENOXAPARIN NA (PORCINE) 40 MG/0.4 ML DISP.SYRIN SQ SCH (08:59)
[2019-06-09] MEDS: HYDROCORTISONE 20 MG TABLET PO SCH (08:59)
[2019-06-09 09:36] LABS: BLOOD UREA NITROGEN 11.2 mg/dL (7-18); CALCIUM 8.7 mg/dL (8.5-10.1); CREATININE 0.7 mg/dL (0.55-1.3); POTASSIUM 3.8 mmol/L (3.5-5.1)
--- NOTE | 2019-06-09 11:49 | PN ---
Progress Note (short form) - Note Progress Note: S/P Rt hip surgery Feels good Vital Signs Period Temp Pulse Resp BP Sys/Henderson Pulse Ox Last 24 Hr 97.9 F-98.6 F 68-77 18-20 103-131/65-84 95-96 PE: AOx3 Neck: Supple HEENT: EOMI LungsL: CTA CVS: S1S2 Abd: Benign EXt: No edema, Rt thigh dressing CMP Sodium 142 mmol/L (136-145) 06/09/19 07:45 Potassium 3.8 mmol/L (3.5-5.1) 06/09/19 07:45 Chloride 105 mmol/L (98-107) 06/09/19 07:45 Carbon Dioxide 30 mmol/L (21-32) 06/09/19 07:45 Anion Gap 7 MMOL/L (8-16) L 06/09/19 07:45 BUN 11.2 mg/dL (7-18) 06/09/19 07:45 Creatinine 0.7 mg/dL (0.55-1.3) 06/09/19 07:45 Est GFR (CKD-EPI)AfAm 98.23 06/09/19 07:45 Est GFR (CKD-EPI)NonAf 84.75 06/09/19 07:45 Random Glucose 100 mg/dL (74-106) 06/09/19 07:45 Calcium 8.7 mg/dL (8.5-10.1) 06/09/19 07:45 Total Bilirubin 0.8 mg/dL (0.2-1) 06/06/19 10:21 AST 27 U/L (15-37) 06/06/19 10:21 ALT 24 U/L (13-61) 06/06/19 10:21 Alkaline Phosphatase 48 U/L (45-117) 06/06/19 10:21 Total Protein 6.0 g/dl (6.4-8.2) L 06/06/19 10:21 Albumin 3.2 g/dl (3.4-5.0) L 06/06/19 10:21 Current Medications Generic Name Dose Route Start Last Admin Trade Name Freq PRN Reason Stop Dose Admin Acetaminophen 650 mg 06/07/19 19:00 06/09/19 05:47 Tylenol - PO 650 mg Q4H PRN Administration PAIN 4-6 Docusate Sodium 100 mg 06/09/19 14:00 Colace - PO TID [facility] Enoxaparin Sodium 40 mg 06/08/19 10:00 06/09/19 08:59 Lovenox - SQ 40 mg DAILY [facility] Administration Fentanyl 25 mcg 06/07/19 13:21 Sublimaze Injection - IVPUSH [id number] PRN PAIN-PACU ORDER X 4 DOSES ONLY Fludrocortisone Acetate 0.05 mg 06/08/19 06:00 06/09/19 05:48 Florinef - PO 0.05 mg DAILY@0600 [facility] Administration Hydrocortisone 20 mg 06/08/19 10:00 06/09/19 08:59 Cortef - PO 20 mg DAILY [facility] Administration Levothyroxine Sodium 50 mcg 06/08/19 07:00 06/09/19 06:14 Synthroid - PO 50 mcg DAILY@0700 [facility] Administration Ondansetron HCl 4 mg 06/07/19 13:21 Zofran Injection IVPUSH Q6H PRN NAUSEA Ondansetron HCl 4 mg 06/07/19 13:21 Zofran Injection IVPUSH Q6H PRN NAUSEA AND/OR VOMITING AP: Fracture Rt Hip s/P Surgery Adrenal Insufficiency Pt seems to be on very low dose hydrocortisone replacement of 7.5 to 15 mg per day. Continue Hydrocortisone 20mg in the morning Fludrocortisone 0.05mg Qd Monitor electrolytes Electrolyte replacement as necessary May need to decrease or discontinue Florinef if Hypokalemia develops Hypothyroidiism Levothyroxine 50mcg Qd
--- NOTE | 2019-06-09 13:22 | PN ---
Teaching Attending Note Name of Resident: Angeles Tuttle ATTENDING PHYSICIAN STATEMENT I saw and evaluated the patient. I reviewed the resident's note and discussed the case with the resident. I agree with the resident's findings and plan as documented with exceptions below. SUBJECTIVE: Patient seen and examined. right hip pain with movements, but overall doing better, no complaints. OBJECTIVE: Vital Signs Period Temp Pulse Resp BP Sys/Henderson Pulse Ox Last 24 Hr 97.9 F-98.6 F 68-77 18-20 103-131/65-84 95-96 Intake & Output 06/06/19 06/07/19 06/08/19 06/09/19 23:59 23:59 23:59 23:59 Intake Total 100 3200 450 Output Total 600 5025 400 Balance -500 -1825 50 Weight 97 lb 97 lb General: sitting in bed, no acute distress neck: soft, supple Chest: CTAB, no rales or wheezing Abdomen;Soft, NT Extremities: right thigh dressing clean, trace surrounding dried blood, pos pulses, trace pedal edema Home Medications Medication Instructions Recorded Cortisone Acetate [Cortisone -] 25 mg PO DAILY 06/06/19 Levothyroxine [Synthroid -] 50 mg PO DAILY 06/06/19 Meclizine HCl 25 mg PO TID 06/06/19 Active Medications Acetaminophen (Tylenol -) 650 mg PO Q4H PRN PRN Reason: PAIN 4-6 Last Admin: 06/09/19 05:47 Dose: 650 mg Docusate Sodium (Colace -) 100 mg PO TID [facility] Enoxaparin Sodium (Lovenox -) 40 mg SQ DAILY [facility] Last Admin: 06/09/19 08:59 Dose: 40 mg Fentanyl (Sublimaze Injection -) 25 mcg IVPUSH [id number] PRN PRN Reason: PAIN-PACU ORDER X 4 DOSES ONLY Fludrocortisone Acetate (Florinef -) 0.05 mg PO DAILY@0600 [facility] Last Admin: 06/09/19 05:48 Dose: 0.05 mg Hydrocortisone (Cortef -) 20 mg PO DAILY [facility] Last Admin: 06/09/19 08:59 Dose: 20 mg Levothyroxine Sodium (Synthroid -) 50 mcg PO DAILY@0700 [facility] Last Admin: 06/09/19 06:14 Dose: 50 mcg Ondansetron HCl (Zofran Injection) 4 mg IVPUSH Q6H PRN PRN Reason: NAUSEA Ondansetron HCl (Zofran Injection) 4 mg IVPUSH Q6H PRN PRN Reason: NAUSEA AND/OR VOMITING Laboratory Results - last 24 hr 06/08/19 06/09/19 06/09/19 15:30 07:45 07:45 WBC 12.3 H 12.6 H RBC 2.62 L 2.61 L Hgb 8.4 L 8.5 L Hct 25.3 L 25.1 L MCV 96.5 H 96.1 H MCH 32.0 32.5 MCHC 33.2 33.8 RDW 12.4 12.7 Plt Count 122 L 140 MPV 9.5 D 9.1 Absolute Neuts (auto) 10.7 H Neutrophils % 86.8 H D Lymphocytes % 7.2 L D Monocytes % 5.8 Eosinophils % 0.1 D Basophils % 0.1 Nucleated RBC % 0 Sodium 142 Potassium 3.8 Chloride 105 Carbon Dioxide 30 Anion Gap 7 L BUN 11.2 Creatinine 0.7 Est GFR (CKD-EPI)AfAm 98.23 Est GFR (CKD-EPI)NonAf 84.75 Random Glucose 100 Calcium 8.7 Microbiology 06/06/19 16:33 Urine - Urine - Catheterized Urine Culture - Final NO GROWTH OBTAINED ASSESSMENT AND PLAN: 73 yof with PMhx of [place]'s disease on Cortisone/Fludrocortisone for 35 years , prior falls, left femoral neck fracture s/p open reduction/internal fixation 2011 admitted with mechanical fall and right intertrochanteric hip fracture -Mechanical Fall -Right intertrochanteric hip fracture s/p Gamma nail 06/07 -Anemia, suspect from acute surgical loss+/- hemodilution -Hypokalemia -Leucocytosis supect surgical stress +/steroid induced -[place]'s disease -H/o falls -h/o left femoral neck fracture s/p ORIF 2011 Plan: Doing well. h/h stablized. Pain control tylenol. Declines oxycodone. Will add low dose tramadol as needed Bowel regimen. Lovenox per orthopedic. CBC stable. Check iron panel, outpatient monitoring. Pain control with Tylenol IV. Caution with opioids given episode of drowsiness/ Vomiting/hypoxia in ED after receiving Morphine. On lovenox per orthopedic. WBC improved, off quinn, PT eval noted. Replete K prn. Endocrine input noted. d/c IV hydrocortisone. PO cortisone 20 mg daily. Continue fludrocortisone/Levothyroxine. DVTPPX lovenox per orthopedic Incentive spirometry Dispo dc to [facility] when arrangements made Discussed with patient and social work.
--- NOTE | 2019-06-09 13:35 | DS ---
Physical Exam: SUBJECTIVE: Patient seen and examined. Eating breakfast sitting at edge of bed comfortably. Patient was able to walk with PT yesterday up and down the hallway. She complains of pain in her right hip but states it is tolerable. OBJECTIVE: Vital Signs Period Temp Pulse Resp BP Sys/Henderson Pulse Ox Last 24 Hr 97.9 F-98.6 F 68-77 18-20 103-131/65-84 95-96 PHYSICAL EXAM GENERAL: Awake, alert, and fully oriented, thin. HEAD: Normal with no signs of trauma. EYES: PERRL, EOMI EARS, NOSE, THROAT: Moist mucous membranes NECK: trachea midline, supple, FROM LUNGS: Breath sounds equal, clear to auscultation bilaterally. No wheezes, and no crackles. No accessory muscle use. HEART: Regular rate and rhythm, normal S1 and S2 without murmur, rub or gallop. ABDOMEN: Soft, nontender, not distended, normoactive bowel sounds MUSCULOSKELETAL: Improved active ROM of right hip. EXTREMITIES: 2+ pulses, warm, well-perfused. No peripheral edema. NEUROLOGICAL: Normal speech. AAOx3 PSYCHIATRIC: Appropriate mood and affect. SKIN: Warm, dry, normal turgor. Right hip surgical site covered with dressing without evidence of hematoma, swelling, or erythema. LABS Laboratory Results - last 24 hr 06/08/19 06/09/19 06/09/19 15:30 07:45 07:45 WBC 12.3 H 12.6 H RBC 2.62 L 2.61 L Hgb 8.4 L 8.5 L Hct 25.3 L 25.1 L MCV 96.5 H 96.1 H MCH 32.0 32.5 MCHC 33.2 33.8 RDW 12.4 12.7 Plt Count 122 L 140 MPV 9.5 D 9.1 Absolute Neuts (auto) 10.7 H Neutrophils % 86.8 H D Lymphocytes % 7.2 L D Monocytes % 5.8 Eosinophils % 0.1 D Basophils % 0.1 Nucleated RBC % 0 Sodium 142 Potassium 3.8 Chloride 105 Carbon Dioxide 30 Anion Gap 7 L BUN 11.2 Creatinine 0.7 Est GFR (CKD-EPI)AfAm 98.23 Est GFR (CKD-EPI)NonAf 84.75 Random Glucose 100 Calcium 8.7 HOSPITAL COURSE: Date of Admission:06/06/19 Date of Discharge: 06/09/19 73 y/o/f with PMHx of Lul and hypothyroidism here s/p mechanical fall at home this morning. Found to have R femur intertrocanteric fracture on CT imaging. Patient was taken to the OR on 06/07 for gamma nail procedure to repair her right hip. Surgery was completed without complications, now POD#2. Given Ofirmev for pain control with good effect. Given Cefazolin x2 for post op prophylaxis. Patient was seen by Endocrinology for management of her Addisons disease, started on a higher dose of Cortisone than she was taking at home and given additional IV doses due to her surgery. The rest of her home medications were continued appropriately. Discharge on 20mg hydrocortisone daily, 0.05mg fludrocortisone and aspirin 81mg daily. Stable for discharge to rehab facility. Minutes to complete discharge: 36 Discharge Summary Problems reviewed: Yes Reason For Visit: INTERTROCHANTERIC FRACTURE OF RIGHT FEMUR Current Active Problems Intertrochanteric fracture of right hip (Acute) Condition: Improved - Instructions Diet, Activity, Other Instructions: You presented to the hospital with right hip pain after a fall. On CT imaging you were found to have an intertrocanteric fracture of your right hip. You were seen by Orthopedics and had surgery done to repair your hip. You were also seen by Endocrinology and your [place]'s medications were continued appropriately with additional medication given for your hip surgery. Medication Changes: 1. Your Hydrocortisone dose has been changed to 20mg daily in the morning. 2. Your Fludrocortisone dose has been changed to 0.05mg daily. 3. Start taking Aspirin 81mg once daily. Follow up with the following physicians: 1. Please follow up with your primary care provider within one week of discharge 2. Please follow up with Orthopedics, Dr. Fernández, for follow up on your hip surgery. 3. Please follow up with your syrup mixer helper for further management of your Lul's disease and proper medication doses. If you do not have an syrup mixer helper you can follow up with Dr. Kate who saw you while you were in the hospital. Follow up labs: 1. Please have your blood count checked in one week (06/16/19). 2. Please have iron studies completed in one week (06/16/19). 3. Please have a basic metabolic panel checked in one week (06/16/19). Activity and Diet 1. You are being discharged to a rehab facility to strengthen your muscles and recover from your hip surgery. 2. Please continue to monitor your diet and eat healthy foods and drink plenty of fluids. Continue all your other medications as prescribed Please return to the ER if you have any signs or symptoms of chest pain, shortness of breath, uncontrollable fever, chills, nausea, vomiting, numbness, tingling, or weakness in any part of your body, changes in vision, or slurred speech. Please return to the ER if symptoms persist, worsen, or new symptoms arise. Referrals: Kendall Fernández MD [Staff Physician] - Daren Neal MD [Primary Care Provider] - Gabriela Kate MD [Staff Physician] - Disposition: SNF FACILITY - Home Medications Comprehensive Discharge Medication List: Ambulatory Orders Levothyroxine [Synthroid -] 50 mg PO DAILY 06/06/19 Meclizine HCl 25 mg PO TID 06/06/19 Aspirin 81 mg PO DAILY #30 tab.chew 06/09/19 Fludrocortisone Acetate [Florinef -] 0.05 mg PO DAILY@0600 #15 tablet 06/09/19 Hydrocortisone [Cortef -] 20 mg PO DAILY #30 tablet 06/09/19 This patient is new to me today: No Emergency Visit: Yes ED Registration Date: 06/06/19 Care time: The patient presented to the Emergency Department on the above date and was hospitalized for further evaluation of their emergent condition. Critical Care patient: No - Discharge Referral Referred to [facility] Med P.C.: No ATTENDING PHYSICIAN STATEMENT I saw and evaluated the patient. I reviewed the resident's note and discussed the case with the resident. I agree with the resident's findings and plan as documented. SUBJECTIVE: OBJECTIVE: ASSESSMENT AND PLAN:
[2019-06-09] MEDS ORDERED: DOCUSATE SODIUM 100 MG CAPSULE (FP) PO SCH (14:00)
--- NOTE | 2019-06-09 14:06 | PN ---
Progress Note (short form) - Note Progress Note: ORTHOPEDICALLY STABLE OKAY FOR DC TO NH
[2019-06-09 15:16] VITALS: BP 142/66; PULSE 68; TEMP 97.5
--- NOTE | 2019-06-10 19:00 | CONS ---
ORTHOPAEDIC CONSULTATION [facility] DATE OF CONSULTATION: 06/06/2019 HISTORY: Patient is a 73-year-old female status post fall today complaining of pain in her right hip with inability to ambulate. No significant past medical history. PHYSICAL EXAMINATION: The right lower extremity is shortened and externally rotated. Marked increased pain with any range of motion of her right hip. Good range of motion of knee, ankles, and toes. Otherwise, neurovascular intact. CAT scan performed in the emergency room showed a right intertrochanteric hip fracture. IMPRESSION: Right intertrochanteric hip fracture. PLAN: Risks, benefits, and alternatives discussed with patient and with in great detail. Patient will be booked for a right Gamma nail tomorrow. CARINE PAREDES M.D. LIZ/[id number]
--- NOTE | 2019-06-10 19:00 | SPEC ---
DATE OF OPERATION: 06/07/2019 PREOPERATIVE DIAGNOSIS: Right intertrochanteric hip fracture. POSTOPERATIVE DIAGNOSIS: Right intertrochanteric hip fracture. PROCEDURE: Right Gamma nail. SURGICAL ATTENDING: Kendall Fernández MD NIGHT CLUB MANAGER: JACOB Brian ANESTHESIA: Spinal. CLOSURE: A 125-degree short Gamma nail with appropriate size interlocks, No. 1 Vicryl fascia, 0 and 2-0 subcutaneous, jonnathan to skin. ESTIMATED BLOOD LOSS: Less than 100 mL. COMPLICATIONS: None. CONDITION: To Recovery in stable condition. DESCRIPTION OF THE PROCEDURE: The patient was taken to the operating room on June 07, 2019. IV Kefzol was administered prophylactically prior to the case. Anesthesia was administered by the anesthesiologist. The patient was then fastened to the fracture table with all prominences well padded. Excellent reduction of the fracture was confirmed in AP and lateral plane by use of fluoroscopy. The right hip area was then prepped and draped in the usual sterile fashion by use of a shower curtain. A small 2-cm longitudinal incision over the tip of the greater trochanter was incised, hemostasis achieved using Bovie cautery. Sharp dissection was carried through the fascia. A guidewire was drilled from the tip of the greater trochanter into the intramedullary canal past the fracture. This was directed by fluoroscopy in both the AP and lateral plane. This was overreamed with a proximal reamer. A short Gamma nail was then malleted down into place. Using the outrigger and a small stab incision laterally, a guidewire was drilled from the lateral aspect of the femur, through the yamel, through the neck into the femoral head. Proper placement was confirmed in the AP and lateral plane by using the image intensifier. The guidewire was measured for length, reamed with a triple reamer, and then screwed with the appropriate-sized lag screw. With the traction removed, the compression device was used to compress the fracture. A set screw was placed from above in the dynamic fashion. Again using the outrigger and through a small stab incision distally, a distal hole was drilled, depth gauged and screwed with the appropriate length locking screw in the static hole. The outrigger was removed. The x-rays in the AP and lateral plane revealed excellent position of the hardware with excellent reduction of the fracture. All incisions were irrigated out with copious amounts of irrigation. The fascia was closed in 0 Vicryl, 2-0 subcutaneous, and jonnathan to the skin. Sterile pressure dressing was applied, patient awakened from anesthesia and transferred to Recovery in stable condition. No complications. Estimated blood loss negligible. Salvatore BORDEN/[id number]
== END 2019-06-09 17:48 | DRG 481 ==
LOC: JER 09:53 → JERBED 13:47 → J6S 17:34
PROVIDERS: ADMIT Hospitalist; ATTEND Hospitalist
PROC: 0QH604Z Insertion of Internal Fixation Device into Right Upper Femur, Open Approach (ICD-10-PCS; principal; 2019-06-06)
DX: S72.141A Displaced intertrochanteric fracture of right femur, initial encounter for closed fracture (principal); E27.1 Primary adrenocortical insufficiency; D62 Acute posthemorrhagic anemia; I34.1 Nonrheumatic mitral (valve) prolapse; R00.1 Bradycardia, unspecified; E03.9 Hypothyroidism, unspecified; Z88.0 Allergy status to penicillin; W01.0XXA Fall on same level from slipping, tripping and stumbling without subsequent striking against object, initial encounter; Y92.091 Bathroom in other non-institutional residence as the place of occurrence of the external cause; E87.6 Hypokalemia; D72.829 Elevated white blood cell count, unspecified
CPT/HCPCS: 36415; 71045-TC-FY; 72192-TC; 73700-TC-RT; 76000-TC-FY; 76999; 80048; 80053; 81003; 85025; 85027; 85610; 85730; 86850; 86900; 86901; 87086; 93005; 93010; 94760; 97116-GP; 97162-GP; 99284-25; J0131

== ENCOUNTER 2019-12-07 07:01 | Day surgery (SDC) | payer OTHER, MEDICARE ==
[2019-12-06 13:08] VITALS: BMI 15.0
[2019-12-07] MEDS ORDERED: MIDAZOLAM HCL 2 MG/2 ML SINGLE DOSE VIAL ONE (09:35)
[2019-12-07] MEDS ORDERED: ceFAZolin 2 GRAM PREMIX BAG IVPB ONE (09:49)
[2019-12-07] MEDS ORDERED: EPHEDRINE SULFATE/0.9% NACL/PF 50 MG/10 ML SYRINGE NR ONE (10:10)
[2019-12-07] MEDS ORDERED: ONDANSETRON 4 MG/2 ML VIAL ONE (11:33)
[2019-12-07 15:52] VITALS: BP 104/83; PULSE 75; TEMP 98
== END 2019-12-07 16:05 | disposition home or self-care (01) ==
LOC: JASU-SURG 07:01 → EDSTATUS 13:00 → JASU-SURG 16:05
PROVIDERS: ATTEND Orthopaedic Surgery
PROC: 0SP904Z Removal of Internal Fixation Device from Right Hip Joint, Open Approach (ICD-10-PCS; principal; 2019-12-07 09:00)
DX: T84.84XA Pain due to internal orthopedic prosthetic devices, implants and grafts, initial encounter (principal)
CPT/HCPCS: 76000-TC-FY; 94760